=== PATIENT | male | born 1960 | race Caucasian/White ===

== ENCOUNTER 2018-08-14 07:27 | Inpatient (IN) | payer MEDICAID ==
[~2018-08-14] VITALS: Ht 160 cm; Wt 98.4 kg
[~2018-08-14 07:27] MED LIST: CEFOXITIN SODIUM 2 G in DEXT 5% WATER 100 ML IV NR
[2018-08-14] MEDS ORDERED: LACTATED RINGERS 1,000 ML IV SCH (08:45)
[2018-08-14] MEDS ORDERED: SKIN ADHESIVE 0.7 GM EA TOP ONE (09:04)
[2018-08-14] MEDS ORDERED: LIDOCAINE HCL 1% 20ML VIAL (Pyxis) INJ ONE (09:04)
[2018-08-14] MEDS ORDERED: NORMAL SALINE 0.9% 10 ML SYR ONE (09:05)
[2018-08-14] MEDS ORDERED: BUPIVACAINE HCL/PF 0.5% (5MG/ML) 10ML ONE (09:05)
[2018-08-14] MEDS ORDERED: BACITRACIN 50,000 UNITS/VIAL ONE (09:05)
[2018-08-14] MEDS ORDERED: INDOCYANINE GREEN 25 MG VIAL IV ONE (09:23)
[2018-08-14] MEDS ORDERED: FENTANYL CITRATE/PF 50MCG/ML 2ML VIAL ONE ×2 (09:24→11:20)
[2018-08-14] MEDS ORDERED: GLYCOPYRROLATE 0.2 MG/ML 2ML VIAL ONE (09:25)
[2018-08-14] MEDS ORDERED: MIDAZOLAM HCL 2 MG/2 ML VIAL ONE (09:25)
[2018-08-14] MEDS ORDERED: NEOSTIGMINE METHYLSULFATE 1MG/ML 10 ML VIAL ONE (09:25)
[2018-08-14] MEDS ORDERED: PROPOFOL 200MG/20ML VIAL IV ONE (09:25)
[2018-08-14] MEDS ORDERED: ONDANSETRON HCL 4MG/2ML INJ ONE (09:38)
[2018-08-14] MEDS ORDERED: ROCURONIUM BROMIDE 10MG/ML VIAL 5ML IV ONE ×3 (10:15→13:52)
[2018-08-14] MEDS ORDERED: HYDROMORPHONE HCL/PF 2MG/ML CPJ IV PRN ×2 (10:30→14:45)
[2018-08-14] MEDS ORDERED: LABETALOL HCL 20MG/4ML CARPUJECT IV PRN (10:30)
[2018-08-14] MEDS ORDERED: ONDANSETRON HCL 4MG/2ML INJ IV PRN ×2 (10:30→14:45)
[2018-08-14] MEDS ORDERED: MEPERIDINE HCL/PF 25MG/ML CPJ IV PRN (10:30)
[2018-08-14] MEDS ORDERED: VECURONIUM BROMIDE 10 MG/VIAL IV ONE (11:50)
[2018-08-14] MEDS ORDERED: SODIUM CHLORIDE 0.9% 10ML VIAL ONE ×2 (11:50→14:12)
[2018-08-14] MEDS ORDERED: HYDROMORPHONE HCL/PF 2MG/ML (OR) ONE (14:11)
[2018-08-14 17:00] VITALS: BP 113/77
[2018-08-14] MEDS: KETOROLAC 30MG/ML VIAL IV SCH ×2 (17:34→23:04)
[2018-08-14] MEDS: SODIUM CHLORIDE 0.45% 1,000 ML IV SCH (18:52)
[2018-08-14 20:00] VITALS: BP 131/88
[2018-08-15] VITALS: BP 132/85
[2018-08-15] MEDS: SODIUM CHLORIDE 0.45% 1,000 ML IV SCH ×2 (00:52→10:47)
[2018-08-15 04:00] VITALS: BP 132/80
[2018-08-15] MEDS ORDERED: KETOROLAC 30MG/ML VIAL IV SCH (05:00)
[2018-08-15 08:00] VITALS: BP 127/72
[2018-08-15 11:22] VITALS: BP 127/72
== END 2018-08-15 11:50 | disposition home or self-care (01) | DRG 263 ==
LOC: OR 07:27 → 6EST 07:28
PROVIDERS: ADMIT Specialist; ATTEND Specialist
PROC: 0FT44ZZ Resection of Gallbladder, Percutaneous Endoscopic Approach (ICD-10-PCS; principal; 2018-08-14)
PROC: 8E0W4CZ Robotic Assisted Procedure of Trunk Region, Percutaneous Endoscopic Approach (ICD-10-PCS; 2018-08-14)
DX: K80.10 Calculus of gallbladder with chronic cholecystitis without obstruction (principal)
CPT/HCPCS: 74018; 82962; 88304; J0694; J1170; J1885; J2250; J2405; J2704; J2710; J3010; J3490; J7060; Q9957